=== PATIENT | female | born 1950 | race Caucasian/White ===

== ENCOUNTER 2016-04-24 08:52 | Emergency (ER) | payer MEDICARE, OTHER ==
[2016-04-24 09:50] LABS: ABSOLUTE EOSINOPHILS # (AUTO) 0.1 10^3/uL (0.0-0.6); ABSOLUTE LYMPHOCYTES (AUTO) 1.3 10^3/uL (0.5-4.7); ABSOLUTE MONOCYTES (AUTO) 0.5 10^3/uL (0.1-1.4); ABSOLUTE NEUT (AUTO) 5.1 10^3/uL (1.7-8.2); BASOPHILS % (AUTO) 0.4 % (0-2); EOSINOPHILS % (AUTO) 1.2 % (0-6); HEMATOCRIT 38.4 % (36.0-47.0); HEMOGLOBIN 12.1 g/dL (12.0-15.5); HGB HCT DIFFERENCE -2.1; MEAN CORPUSCULAR HEMOGLOBIN 25.6 pg (27.0-33.4); MEAN CORPUSCULAR HGB CONC 31.5 g/dL (32.0-36.0); MEAN CORPUSCULAR VOLUME 81 fl (80-97); MONOCYTES % (AUTO) 6.6 % (3-13); RED BLOOD COUNT 4.73 10^6/uL (3.72-5.28); RED CELL DISTRIBUTION WIDTH 16.7 % (11.5-14.0); SEGMENTED NEUTROPHILS % (AUTO) 73.8 % (42-78)
[2016-04-24 10:03] LABS: ALANINE AMINOTRANSFERASE 89 U/L (9-52); ALBUMIN 3.8 g/dL (3.5-5.0); ALKALINE PHOSPHATASE 172 U/L (38-126); ANION GAP 12 (5-19); ASPARTATE AMINO TRANSFERASE 133 U/L (14-36); BILIRUBIN,TOTAL 1.2 mg/dL (0.2-1.3); BLOOD UREA NITROGEN 15 mg/dL (7-20); CALCIUM 8.9 mg/dL (8.4-10.2); CARBON DIOXIDE 22 mmol/L (22-30); CHLORIDE 106 mmol/L (98-107); CREATINE KINASE 101 U/L (30-135); CREATININE RESULT 0.67 mg/dL (0.52-1.25); GLUCOSE 343 mg/dL (75-110); POTASSIUM 4.7 mmol/L (3.6-5.0); SODIUM 140.4 mmol/L (137-145); TOTAL PROTEIN 6.7 g/dL (6.3-8.2)
[2016-04-24 10:15] LABS: CREATINE KINASE MB 2.85 ng/mL (<4.55)
[2016-04-24 10:18] LABS: TROPONIN I 1.45 ng/mL
[2016-04-24] MEDS ORDERED: ASPIRIN 81 MG TABLET, CHEWABLE PO ONE (10:30)
[2016-04-24] MEDS ORDERED: NITROGLYCERIN/D5W 250 ML IV PRN (10:31)
--- NOTE | 2016-04-24 10:40 | ER Document Report ---
ED General - General Chief Complaint: Breathing Difficulty Stated Complaint: DIFFICULTY BREATHING Mode of Arrival: Ambulatory Information source: Patient Notes: This is a 65-year-old female with multiple medical problems to include hypertension, diabetes, MS who presents for evaluation of dyspnea. She states that she was diagnosed with pneumonia 4 days ago at urgent care and she has been taking her antibiotic and using inhaler however having increasing shortness of breath. She also states that she has had some intermittent substernal chest tightness. She is here visiting family and actually lives in [place]. Last night she had significant difficulty sleeping secondary to worsening dyspnea. Of note she states she has no prior cardiac history. Currently she has no actual chest pain but complains mostly of dyspnea. TRAVEL OUTSIDE OF THE [place] IN LAST 30 DAYS: No - Related Data Allergies/Adverse Reactions: ciprofloxacin [From Cipro] Allergy (Verified 04/24/16 08:58) ropinirole [From Requip] Allergy (Verified 04/24/16 08:58) Past Medical History - General Information source: Patient - Social History Smoking Status: Former Smoker Chew tobacco use (# tins/day): No Frequency of alcohol use: None Drug Abuse: None Family History: Reviewed & Not Pertinent Patient has suicidal ideation: No Patient has homicidal ideation: No - Past Medical History Cardiac Medical History: Reports: Hx Hypercholesterolemia, Hx Hypertension Pulmonary Medical History: Reports: Hx Pneumonia, Other - sarcoidosis Endocrine Medical History: Reports: Hx Diabetes Mellitus Type 2 Renal/ Medical History: Denies: Hx Peritoneal Dialysis Malignancy Medical History: Reports: Other - neuroendocrine small cell, and vulvar cancer, both in remission Musculoskeltal Medical History: Reports Hx Multiple Sclerosis Past Surgical History: Reports: Hx Hysterectomy Review of Systems - Review of Systems Notes: REVIEW OF SYSTEMS: CONSTITUTIONAL : Recent cough and shortness of breath with subjective fevers as per history of present illness EENT: Denies eye, ear, throat, or mouth pain or symptoms. Denies nasal or sinus congestion. CARDIOVASCULAR: As per history of present illness RESPIRATORY: As per history of present illness GASTROINTESTINAL: Denies abdominal pain. Denies nausea, vomiting, or diarrhea. GENITOURINARY: Denies difficulty urinating, painful urination, burning, frequency, or blood in urine. MUSCULOSKELETAL: Denies neck or back pain or joint pain or swelling. SKIN: Denies rash or skin lesions. HEMATOLOGIC : Denies easy bruising or bleeding. LYMPHATIC: Denies swollen, enlarged glands. NEUROLOGICAL: Denies altered mental status or loss of consciousness. Denies headache. PSYCHIATRIC: Denies anxiety or stress or depression. ALL OTHER SYSTEMS REVIEWED AND NEGATIVE. Physical Exam - Vital signs Vitals: Temp Pulse Resp BP Pulse Ox 97.8 F 71 21 H 153/83 H 95 04/24/16 09:00 04/24/16 09:00 04/24/16 09:00 04/24/16 09:00 04/24/16 09:00 - Notes Notes: PHYSICAL EXAMINATION: GENERAL: Alert, conversant female who is somewhat ill appearing secondary to shortness of breath.. HEAD: Atraumatic, normocephalic. EYES: Pupils equal round and reactive to light, extraocular movements intact, sclera anicteric, conjunctiva are normal. ENT: nares patent, oropharynx clear without exudates. Moist mucous membranes. NECK: Normal range of motion, supple without lymphadenopathy LUNGS: Breath sounds clear to auscultation bilaterally and equal. No wheezes rales or rhonchi. HEART: Regular rate and rhythm without murmurs ABDOMEN: Soft, nontender, normoactive bowel sounds. No guarding, no rebound. No masses appreciated. EXTREMITIES: Normal range of motion, no pitting or edema. No cyanosis. NEUROLOGICAL: Cranial nerves grossly intact. No gross focal motor or sensory deficits appreciated PSYCH: Normal mood, normal affect. SKIN: Warm, Dry, normal turgor, no rashes or lesions noted. Course - Re-evaluation Re-evalutation: 04/24/16 10:50 EKG with signs of inferior and lateral ischemia along with elevated troponin. Patient to be placed on nitroglycerin drip. I have paged cardiac connection at [facility] for transfer. 04/24/16 11:[address] dock grader Dr. Gen Bishop who agrees with nitro drip and heparin drip at this time. Patient is accepted for transfer once bed becomes available. - Vital Signs Vital signs: Temp Pulse Resp BP Pulse Ox 97.8 F 71 24 H 179/106 H 99 04/24/16 09:00 04/24/16 09:00 04/24/16 13:26 04/24/16 13:26 04/24/16 13:26 - Laboratory Result Diagrams: 04/24/16 09:30 04/24/16 09:30 Laboratory results interpreted by me: 04/24/16 04/24/16 04/24/16 09:30 09:30 09:30 MCH 25.6 L MCHC 31.5 L RDW 16.7 H Glucose 343 H AST 133 H ALT 89 H Alkaline Phosphatase 172 H NT-Pro-B Natriuret Pep 23074 H Urine Protein Urine Glucose (UA) Ur Leukocyte Esterase 04/24/16 10:50 MCH MCHC RDW Glucose AST ALT Alkaline Phosphatase NT-Pro-B Natriuret Pep Urine Protein 30 H Urine Glucose (UA) >=500 H Ur Leukocyte Esterase SMALL H - EKG Interpretation by Me Additional EKG results interpreted by me: 04/24/16 10:39 EKG at 921 demonstrates normal sinus rhythm with a rate of 71. She does have downsloping ST depression laterally in V4 V5 and V6. There is also ST depression inferiorly in leads II, III, and F aVF. There is no ST elevation. Critical Care Note - Critical Care Note Total time excluding time spent on procedures (mins): 45 - minutes of critical care time spent in direct contact evaluating and reevaluating the patient, treating symptoms, reviewing labs and studies and speaking with family and consultants excluding any procedures Discharge - Discharge Clinical Impression: Acute coronary syndrome, Non-STEMI (non-ST elevated myocardial infarction) CHF (congestive heart failure) Qualifiers: Congestive heart failure type: unspecified congestive heart failure type Congestive heart failure chronicity: unspecified congestive heart failure chronicity Qualified Code(s): I50.9 - Heart failure, unspecified Condition: Fair Disposition: [facility]
[2016-04-24] MEDS ORDERED: HEPARIN SOD (PORCINE) 1,000 UNIT/ML 10 ML VIAL IV ONE ×2 (10:54→11:15)
[2016-04-24] MEDS ORDERED: HEPARIN SODIUM,PORCINE/D5W 250 ML IV PRN (10:56)
[2016-04-24 11:10] LABS: APPEARANCE,URINE SLIGHTLY-CLOUDY; BILIRUBIN,URINE NEGATIVE (NEGATIVE); GLUCOSE, URINE >=500 mg/dL (NEGATIVE); KETONES,URINE NEGATIVE (NEGATIVE); LEUKOCYTE ESTERASE,URINE SMALL (NEGATIVE); NITRITE,URINE NEGATIVE (NEGATIVE); PROTEIN,URINE 30 mg/dL (NEGATIVE); URINE SPECIFIC GRAVITY 1.027; UROBILINOGEN,URINE NEGATIVE mg/dL (<2.0)
--- NOTE | 2016-04-24 12:09 | EKG REPORT ---
SEVERITY:- ABNORMAL ECG - SINUS RHYTHM PROBABLE LEFT ATRIAL ABNORMALITY NONSPECIFIC REPOL ABNORMALITY, DIFFUSE LEADS : Confirmed by: Lola Jiang MD 24-Apr-2016 12:08:52
--- NOTE | 2016-04-24 12:09 | EKG REPORT ---
SEVERITY:- ABNORMAL ECG - SINUS RHYTHM PROBABLE LEFT ATRIAL ABNORMALITY NONSPECIFIC REPOL ABNORMALITY, DIFFUSE LEADS : Confirmed by: Lola Jiang MD 24-Apr-2016 12:08:35
[2016-04-24 13:31] VITALS: BP 179/106
--- NOTE | 2016-04-24 20:37 | EKG REPORT ---
SEVERITY:- ABNORMAL ECG - SINUS RHYTHM ABNORMAL T, CONSIDER ISCHEMIA, LATERAL LEADS : Confirmed by: Lola Jiang MD 24-Apr-2016 20:36:55
== END 2016-04-24 14:20 | disposition short-term general hospital (02) ==
LOC: ER 08:52
DX: I24.9 Acute ischemic heart disease, unspecified (principal); I21.4 Non-ST elevation (NSTEMI) myocardial infarction; I50.9 Heart failure, unspecified; R06.02 Shortness of breath; I10 Essential (primary) hypertension; E11.9 Type 2 diabetes mellitus without complications; G35 Multiple sclerosis; Z87.891 Personal history of nicotine dependence
CPT/HCPCS: 93005 ×2; 99291; 96374; 36415; 82553; 82550; 85025; 80053; 81001; 84484; 83880; 71010; 93010; J1644 ×2; A9270; J3490